=== PATIENT | male | born 1965 | race Caucasian/White ===

== ENCOUNTER 2016-11-09 19:49 | Emergency (ER) | payer MEDICAID ==
[~2016-11-09] VITALS: Ht 188 cm; Wt 90.7 kg
[2016-11-09 20:09] VITALS: BP 133/92
[2016-11-09] MEDS ORDERED: NEOMYCIN-BACITRACIN-POLYM UNITDOSE PKG TOP OINT TOP ONE (22:30)
[2016-11-09] MEDS ORDERED: HYDROcodone-ACET 10/325MG TAB PO ONE (22:30)
== END 2016-11-09 22:35 | disposition home or self-care (01) ==
LOC: ER 19:54
DX: S83.91XA Sprain of unspecified site of right knee, initial encounter (principal); S80.01XA Contusion of right knee, initial encounter; S80.211A Abrasion, right knee, initial encounter; F12.10 Cannabis abuse, uncomplicated; F17.210 Nicotine dependence, cigarettes, uncomplicated; V29.88XA Motorcycle rider (driver) (passenger) injured in other specified transport accidents, initial encounter; Y93.89 Activity, other specified; Y99.8 Other external cause status; Y92.89 Other specified places as the place of occurrence of the external cause
CPT/HCPCS: 29505; 73562

== ENCOUNTER 2019-03-02 15:22 | Emergency (ER) | payer MEDICAID ==
[~2019-03-02] VITALS: Ht 188 cm; Wt 93.0 kg
[2019-03-02 16:05] LABS: Basophils # (auto) 0 uL; Basophils % (auto) 0.4 % (0.0-2.0); Eosinophils # (auto) 0.1 uL; Eosinophils % (auto) 1.3 % (0.0-7.0); Hematocrit 45.5 % (41.0-53.0); Hemoglobin 15.5 g/dL (13.5-17.5); Lymphocytes # (auto) 1.7 uL; Lymphocytes % (auto) 14.8 % (10.0-50.0); Mean Corpuscular Hgb Conc. 34.1 g/dL (32.0-36.0); Mean Corpuscular Volume 93.7 fL (80.0-100.0); Monocytes # (auto) 0.6 uL; Monocytes % (auto) 5.4 % (0.0-12.0); Neutrophils % (auto) 78.1 % (37.0-80.0); Platelet Count (auto) 180 10^3/uL (140-450); Red Blood Cells 4.86 10^6/uL (4.5-5.90); White Blood Cell 11.5 10^3/uL (4.4-10.8)
[2019-03-02 16:16] LABS: Albumin 3.2 g/dL (3.4-5.0); Calcium 8.3 mg/dL (8.5-10.1); Potassium 3.5 mmol/L (3.5-5.1)
[2019-03-02 16:18] LABS: Bilirubin, Total 0.5 mg/dL (0.2-1.0); Total Protein 7.5 g/dL (6.4-8.2)
[2019-03-02] MEDS ORDERED: cefTRIAXone 1GM/50ML D5W 50 ML IV ONE (16:30)
[2019-03-02] MEDS ORDERED: CLINDAMYCIN 900MG IV 50 ML IV ONE (16:30)
[2019-03-02] MEDS ORDERED: CLINDAMYCIN 600 MG/4 ML VL IM ONE (18:00)
[2019-03-02] MEDS ORDERED: cefTRIAXone SOD 1,000 MG VL IM ONE (18:00)
[2019-03-02 18:41] VITALS: BP 104/59
== END 2019-03-02 20:53 | disposition home or self-care (01) ==
LOC: ER 15:22
DX: L03.113 Cellulitis of right upper limb (principal); F17.210 Nicotine dependence, cigarettes, uncomplicated
CPT/HCPCS: 36415; 73130; 73200; 80053; 85025; 96372; 99284; J0696

== ENCOUNTER 2025-05-13 15:27 | Emergency (ER) | payer MEDICAID ==
[~2025-05-13] VITALS: Ht 188 cm; Wt 109.0 kg
--- NOTE | 2025-05-13 15:45 | ED.PDOC ---
Back pain HPI HPI Comments 59 y/o M, presents to the ED for CC of neck pain. Patient states, he has been experiencing worsening neck pain x5days. Patient reports, to have had a cervical fracture x11 years ago; endorses Shx of cervical fusion. Patient denies recent trauma, injury, or fall. No other associated symptoms or modifying factors present at this time. Vital signs were stable. Chief Complaint: Neck Pain Time Seen by MD: 15:30 Primary Care Provider: UNKNOWN Reviewed Notes: Nurses Notes, Medications, Allergies Allergies: Coded Allergies: NO KNOWN ALLERGIES (Unverified , 03/02/19) Information Source: Patient Mode of Arrival: Ambulatory Timing: Days Duration: Since onset Location of Back pain: (B) Cervical Severity: Moderate Prehospital treatment: None Onset: Spontaneous Circumstance: Other (previous fx) History of: Chronic Back Pain Modifying Factors: Nothing Associated signs and symptoms: None Past Medical History PAST MEDICAL HISTORY: Denies Surgical History: Denies all surgeries Surgical History (Other): Cervical Family History Family History: Unknown Social History Smoker: Cigarettes, Less Than 1 Pack/Day Alcohol: Occasionally Drugs: Denies Drug Use Lives In: Home Constitutional: denies: chills, diaphoresis, fatigue, fever, malaise, sweats, weakness, others EENTM: denies: blurred vision, double vision, ear bleeding, ear discharge, ear drainage, ear pain, ear ringing, eye pain, eye redness, hearing loss, mouth pain, mouth swelling, nasal discharge, nose bleeding, nose congestion, nose pain, photophobia, tearing, throat pain, throat swelling, voice changes, others Respiratory: denies: cough, hemoptysis, orthopnea, SOB at rest, shortness of breath, SOB with excertion, stridor, wheezing, others Cardiovascular: denies: chest pain, dizzy spells, diaphoresis, Dyspnea on exertion, edema, irregular heart beat, left arm pain, lightheadedness, palpitations, PND, syncope, others Gastrointestinal: denies: abdomen distended, abdominal pain, blood streaked bowels, constipated, diarrhea, dysphagia, difficulty swallowing, hematemesis, melena, nausea, poor appetite, poor fluid intake, rectal bleeding, rectal pain, vomiting, others Genitourinary: denies: burning, dysuria, flank pain, frequency, hematuria, incontinence, penile discharge, penile sore, pain, testicle pain, testicle swelling, urgency, others Neurological: denies: dizziness, fainting, headache, left sided numbness, left sided weakness, numbness, paresthesia, pre-existing deficit, right sided numbness, right sided weakness, seizure, speech problems, tingling, tremors, weakness, others Musculoskeletal: reports: neck pain; denies: back pain, gout, joint pain, joint swelling, muscle pain, muscle stiffness, others Integumetry: denies: bruises, change in color, change in hair/nails, dryness, laceration, lesions, lumps, rash, wounds, others Allergic/Immunocompromised: denies: Difficulty Healing, Frequent Infections, Hives, Itching, others Hematologic/Lymphatic: denies: anemia, blood clots, easy bleeding, easy bruising, swollen glands, others Endocrine: denies: excessive hunger, excessive sweating, excessive thirst, excessive urination, flushing, intolerance to cold, intolerance to heat, unexplained weight gain, unexplained weight loss, others Psychiatric: denies: anxiety, bipolar disorder, depression, hopeless, panic disorder, schizophrenia, sleepless, suicidal, others All Other Systems: Reviewed and Negative Physical Exam General Appearance: Moderate Distress (Moderate distress due to neck pain con cerns.), Obese HEENT: Normal ENT Inspection, Pharynx Normal, TMs Normal Neck: Other (Diffuse tenderness to palpation that is most increase around C1 and C2. No signs of trauma. Some straightening noted. No signs of infection.) Respiratory: Chest Non-Tender, Lungs Clear, No Accessory Muscle Use, No Respiratory Distress, Normal Breath Sounds Cardiovascular: No Edema, No JVD, No Murmur, No Gallop, Normal Peripheral Pulse s, Regular Rate/Rhythm Breast Exam: Deferred Gastrointestinal: No Organomegaly, Non Tender, No Pulsatile Mass, Normal Bowel Sounds, Soft Genitalia: Deferred Pelvic: Deferred Rectal: Deferred Extremities: No calf tenderness, Normal capillary refill, Normal inspection, Normal range of motion, Non-tender, No pedal edema Neurologic: Alert, No Motor Deficits, Normal Affect, Normal Mood, No Sensory Deficits Cerebellar Function: Normal Reflexes: Normal Skin: Dry, Normal Color, Warm Lymphatic: No Adenopathy Was a procedure done? Was a procedure done?: No Back Pain Differential Dx Differential Diagnosis: Musculoskeletal Pain, Other (Degenerative disc disease of the cervical spine, cervical muscle strain) X-Ray, Labs, Meds, VS Vital Signs Date Time Temp Pulse Resp B/P (MAP) Pulse Ox O2 Delivery O2 Flow Rate FiO2 05/13/25 15:53 98.2 73 16 123/68 (86) 96 98.2 05/13/25 15:37 97.6 83 16 151/77 (101) 98 97.6 Current Medications Medications (Trade) Dose Ordered Sig/Kerri Route Start Time Stop Time Status Last Admin Acetaminophen/ Hydrocodone Bitart ([place] 10/325MG Tab) 1 tab ONCE ONCE PO 05/13/25 15:45 05/13/25 15:46 DC 05/13/25 15:50 [place] [address] Ph: [phone] DIAGNOSTIC IMAGING Diagnostic Imaging Report : [id number] Signed PATIENT: FABIOLA RADFORD JRACCT: [id number] UNIT: [id number] : 1965 LOC: ER ROOM / BED: / AGE / SEX: 59 / M ADM STATUS: REG ER SERVICE [id number] ORDERING PHYSICIAN: CALDERON HOLLAND PAC PROCEDURE(s): CERV2 - CERVICAL SPINE 3V REASON: Neck pain ORDER NUMBER(s): [id number], ACCESSION NUMBER(s): [id number] XY CERVICAL SPINE 3V INDICATION: Neck pain TECHNICAL DATA: The following views were obtained of the cervical spine: Frontal, lateral, swimmer's, open mouth . COMPARISON: None FINDINGS: C1-7 are visualized on the lateral view for evaluation of alignment. C4-5 anterior hardware with intervertebral disc is noted. There is no spondylolisthesis. Vertebral body heights are maintained. Disk heights are narrow. The facet joints appear degenerative. The dens and predental space demonstrate no abnormality. The C1-C2 articulation appears normal. Prevertebral soft tissues are within normal limits. IMPRESSION: C4-5 anterior hardware with intervertebral disc appear intact. Multilevel degenerative changes of the cervical spine. No acute fracture or dislocation of the cervical spine. ATED BY: YOSSI ROSALES MD DICTATED DATE/TIME: 05/13/25 1632 SIGNED BY: YOSSI ROSALES MD SIGNED DATE/TIME: 05/13/25 1258 CC: X-Ray, Labs, Meds, VS Comment All studies performed the ED were evaluated by me personally. Imaging study of the cervical spine revealed a C4-5 anterior hardware with the intervertebral disc appearing intact with a additional multilevel degenerative changes noted. 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 Advised patient follow up with the his primary care provider and surgeon for continued evaluation and management. Time of 1ST Reevaluation: 17:11 Reevaluation 1ST: Improved Consultation: PCP, Surgery Patient Education/Counseling: Diagnosis, Treatment Family Education/Counseling: Diagnosis, Treatment, No Family Present SEPSIS Sepsis Screen Recent Procedure: No On Antibiotic Therapy: No Respiratory Rate >20: No Heart Rate >90: No Temp<36 C (96.8 F) or >38.3 C: No SBP <90 or MAP <65 mmHG: No New Acute Mental Status Change: No Is the patient on CPAP, BIPAP,: No Physician Orders Cervical Spine 3v (05/13/25 15:39) Vital Signs Date Time Temp Pulse Resp B/P (MAP) Pulse Ox O2 Delivery O2 Flow Rate FiO2 05/13/25 15:53 98.2 73 16 123/68 (86) 96 98.2 05/13/25 15:37 97.6 83 16 151/77 (101) 98 97.6 Medications Medications Dose Ordered Sig/Kerri Route Start Time Stop Time Status Last Admin Dose Admin Acetaminophen/ Hydrocodone Bitart 1 tab ONCE ONCE PO 05/13/25 15:45 05/13/25 15:46 DC 05/13/25 15:50 Departure 1 Departure Time of Disposition: 17:11 Impression: Primary Impression: Cervical radiculopathy Disposition: 01 HOME / SELF CARE / HOMELESS Condition: Stable Additional Instructions: Advised patient utilize pain medication as needed for symptomatic relief and additionally, patient will need to follow up with his primary care provider and spinal surgeon for discussions related to continued cervical spine issues. e-Prescriptions Hydrocodone-Acetaminophen (Hydrocodone Bitartrate/AC 5-325 mg) 1 Tab Tab 1 TAB PO Q6HP PRN, #20 TAB Prov: CALDERON HOLLAND PAC 05/13/25 Ibuprofen Micronized (Ibuprofen) 800 Mg Tab 800 MG PO Q8HP PRN, #20 TAB Prov: CALDERON HOLLAND PAC 05/13/25 Discharged With: Self, Friend Critical Care Note Critical Care Time?: No Stability Stability form required: No Heart Score Heart Score: Heart Score Response (Comments) Value History N/A 0 EKG N/A 0 Age N/A 0 Risk Factors N/A 0 Troponin N/A 0 Total 0 I personally scribed for CALDERON HOLLAND PAC ([email or web address]) on 05/13/25 at 15:45. Electronically submitted by Kavita Santos ([email or web address]). I personally scribed for CALDERON HOLLAND PAC ([email or web address]) on 05/13/25 at 16:37. Electronically submitted by Kavita Santos ([email or web address]). CALDERON HOLLAND PAC May 13, 2025 15:45
[2025-05-13] MEDS: HYDROcodone-ACET 10/325MG TAB PO ONE (15:50)
[2025-05-13 15:53] VITALS: BP 123/68; PULSE 73; RESP 16; TEMP 98.2; O2SAT 96
--- NOTE | 2025-05-13 16:35 | DVH ---
XY CERVICAL SPINE 3V INDICATION: Neck pain TECHNICAL DATA: The following views were obtained of the cervical spine: Frontal, lateral, swimmer's, open mouth . COMPARISON: None FINDINGS: C1-7 are visualized on the lateral view for evaluation of alignment. C4-5 anterior hardware with inte rvertebral disc is noted. There is no spondylolisthesis. Vertebral body heights are maintained. Disk heights are narrow. The facet joints appear degenerative. The dens and predental space demonstrate no abnormality. The C1-C2 articulation appears normal. Prevertebral soft tissues are within normal limi ts. IMPRESSION: C4-5 anterior hardware with intervertebral disc appear intact. Multilevel degenerative changes of the cervical spine. No acute fracture or dislocation of the cervical spine.
[2025-05-13] MEDS ORDERED: HYDR-4902 PO (17:12)
[2025-05-13] MEDS ORDERED: IBUP-1455 PO (17:12)
== END 2025-05-13 17:36 | disposition home or self-care (01) ==
LOC: ER 15:27
DX: M54.12 Radiculopathy, cervical region (principal); F17.210 Nicotine dependence, cigarettes, uncomplicated
CPT/HCPCS: 72040